=== PATIENT | male | born 1980 | race Caucasian/White ===

== ENCOUNTER → 2023-08-27 | Outpatient (CLI) | payer BC ==
--- NOTE | 2023-08-27 16:08 | MM ---
Reason for Exam: Clinical finding. Baseline mammogram. Indicated Problems: Lump or thickening of the right side for 2 Month(s). Prior Study Comparison: Patient's first Mammogram. Tissue Density: The breast tissue is heterogeneously dense. This may lower the sensitivity of mammography. Findings: Analyzed By CAD. Benign bilateral subareolar flame-shaped density, right greater than left. Palpable marker placed over the right breast. Low axillary tail lymph node on the left. No significant mass, suspicious microcalcification, or other discrete abnormality is seen. Overall Assessment: Benign, BI-RAD 2 Management: Clinical Management of both breasts in 1 year. For the asymmetric benign bilateral gynecomastia, right greater than left.. Results were given to the patient verbally at the time of exam. Correlate for possible causes. Electronically signed and approved by: Zuleika Peralta M.D. Radiologist
[2023-08-28 12:15] LABS: Zinc, Serum 82 ug/dL (60-130)
== END | disposition home or self-care (01) ==
LOC: RADMAMWWP 14:02
PROVIDERS: ATTEND Family Medicine
DX: R92.333 Mammographic heterogeneous density, bilateral breasts (principal); N62 Hypertrophy of breast
CPT/HCPCS: 77062; 77066; 84207; 84630